=== PATIENT | male | born 1985 | race Hispanic/Latino ===

== ENCOUNTER 2020-12-22 13:00 | Outpatient (RCR) | payer OTHER | END 2020-12-23 | LOC: PT 13:00 | PROVIDERS: ATTEND Specialist | DX: S93.402A Sprain of unspecified ligament of left ankle, initial encounter (principal); M25.672 Stiffness of left ankle, not elsewhere classified; M25.675 Stiffness of left foot, not elsewhere classified; R53.1 Weakness; R26.9 Unspecified abnormalities of gait and mobility ==

== ENCOUNTER 2021-01-07 09:59 | Outpatient (RCR) | payer OTHER | END 2021-01-23 | LOC: PT 09:59 | PROVIDERS: ATTEND Specialist | DX: M25.672 Stiffness of left ankle, not elsewhere classified (principal); M25.675 Stiffness of left foot, not elsewhere classified; R53.1 Weakness; R26.9 Unspecified abnormalities of gait and mobility | CPT/HCPCS: 97139 ==